=== PATIENT | male | born 1965 | race Two or more races ===

== ENCOUNTER 2020-08-02 18:40 | Inpatient (IN) | payer MEDICAID, OTHER ==
[~2020-08-02] VITALS: Ht 167.6 cm; Wt 83.0 kg
[2020-08-02] MEDS: SODIUM CHLORIDE 0.9% 1,000 ML IV SCH
[2020-08-02] MEDS ORDERED: cloNIDine HCL 0.1 MG TAB ONE (19:03)
[2020-08-02] MEDS ORDERED: cloNIDine HCL 0.1 MG TAB PO ONE ×2 (19:15→22:45)
[2020-08-02] MEDS ORDERED: levoFLOXacin 750MG 150 ML IV ONE (21:15)
[2020-08-02 22:32] LABS: Basophils # (auto) 0 10 ^3/uL (0-0.2); Eosinophils # (auto) 0 10 ^3/uL (0-0.8); Eosinophils % (auto) 0.2 % (0.0-7.0); Lymphocytes # (auto) 0.4 10 ^3/uL (0.4-5.4); Neutrophils # (auto) 6.3 10 ^3/uL (1.6-8.6); Red Cell Distribution Width 16.4 % (11.8-14.3); White Blood Cell 7.4 10^3/uL (4.4-10.8)
[2020-08-02 22:34] LABS: Basophils % (auto) 0.4 % (0.0-2.0); Hematocrit 26.3 % (41.0-53.0); Mean Corpuscular Hemoglobin 28.3 pg (28.0-32.0); Mean Corpuscular Hgb Conc. 30.6 g/dL (32.0-36.0); Mean Corpuscular Volume 92.6 fL (80.0-100.0); Monocytes # (auto) 0.7 10 ^3/uL (0-1.3); Monocytes % (auto) 9.1 % (0.0-12.0); Neutrophils % (auto) 85.3 % (37.0-80.0); Nucleated Red Blood Cells % 0.4 %; Platelet Count (auto) 321 10^3/uL (140-450); Red Blood Cells 2.84 10^6/uL (4.5-5.90)
[2020-08-02 22:50] LABS: INR 1.01 (0.9-1.15); Partial Thromboplastin Time 38.1 sec (23.0-31.2)
[2020-08-02 22:56] LABS: Albumin 2.8 g/dL (3.4-5.0); Calcium 8.4 mg/dL (8.5-10.1); Magnesium 2.3 mg/dL (1.6-2.6)
[2020-08-02 22:59] LABS: BUN/Creatinine Ratio 12.1
[2020-08-02] MEDS ORDERED: ACETAMINOPHEN 500 MG TAB PO PRN (23:00)
[2020-08-02] MEDS ORDERED: MORPHINE SULF INJ 2 MG/ML SYRINGE 1ML IV PRN (23:00)
[2020-08-02] MEDS ORDERED: ACETAMINOPHEN 325 MG TAB PO PRN (23:00)
[2020-08-02] MEDS ORDERED: DOCUSATE SOD 100 MG CAP PO PRN (23:00)
[2020-08-02] MEDS ORDERED: ONDANSETRON HCL 4 MG/2 ML VIAL IV PRN (23:00)
[2020-08-02 23:04] LABS: Bilirubin, Total 0.4 mg/dL (0.2-1.0); Total Protein 7.9 g/dL (6.4-8.2)
[2020-08-03 01:14] VITALS: BP 203/96
[2020-08-03] MEDS: ALBUTEROL SULF HFA 90MCG INH 200DOSE IN SCH ×3 (07:20→22:31)
[2020-08-03 09:37] LABS: Basophils # (auto) 0 10 ^3/uL (0-0.2); Basophils % (auto) 0.3 % (0.0-2.0); Eosinophils # (auto) 0 10 ^3/uL (0-0.8); Eosinophils % (auto) 0.2 % (0.0-7.0); Hemoglobin 7.5 g/dL (13.5-17.5); Mean Corpuscular Volume 91.4 fL (80.0-100.0); Red Cell Distribution Width 16.4 % (11.8-14.3); White Blood Cell 5.4 10^3/uL (4.4-10.8)
[2020-08-03] MEDS: ASCORBIC ACID 1,000 MG TAB PO SCH (09:37)
[2020-08-03] MEDS: DOXYCYCLINE 100 MG TAB/CAP PO SCH ×2 (09:37→23:01)
[2020-08-03] MEDS: ZINC SULFATE 220mg CAP or TAB PO SCH (09:37)
[2020-08-03] MEDS: SODIUM CHLORIDE 0.9% 1,000 ML IV SCH (09:37)
[2020-08-03 09:38] LABS: Hematocrit 23.8 % (41.0-53.0); Lymphocytes # (auto) 0.6 10 ^3/uL (0.4-5.4); Lymphocytes % (auto) 11.6 % (10.0-50.0); Mean Corpuscular Hemoglobin 28.8 pg (28.0-32.0); Mean Corpuscular Hgb Conc. 31.5 g/dL (32.0-36.0); Monocytes # (auto) 0.7 10 ^3/uL (0-1.3); Monocytes % (auto) 13.4 % (0.0-12.0); Neutrophils % (auto) 74.5 % (37.0-80.0); Platelet Count (auto) 291 10^3/uL (140-450)
[2020-08-03] MEDS: ENOXAPARIN SOD 30 MG/0.3 ML SYRINGE SC SCH (09:38)
[2020-08-03 09:53] LABS: Albumin 2.3 g/dL (3.4-5.0); Calcium 8.6 mg/dL (8.5-10.1); Magnesium 2.1 mg/dL (1.6-2.6); Potassium 4.8 mmol/L (3.5-5.1)
[2020-08-03 10:03] LABS: Bilirubin, Total 0.4 mg/dL (0.2-1.0)
[2020-08-03 14:39] LABS: Cholesterol 109 mg/dL (< 200)
[2020-08-03 14:41] LABS: HDL Cholesterol 37 mg/dL (40-59); LDL Cholesterol 50 mg/dL (< 100); Triglycerides 136 mg/dL (< 150)
[2020-08-03] MEDS ORDERED: amLODIPine BESYLATE 5 MG TAB PO ONE (14:45)
[2020-08-03 18:42] VITALS: BP 177/94
--- NOTE | 2020-08-03 18:46 | NUR ---
PATIENT ARRIVED TO THE FLOOR AND SHOWS NO SIGNS OF DISTRESS AT THIS TIME. BED IN LOWEST POSITION, SIDE RAILS UP X2, AND THE CALL LIGHT IS WITHIN REACH.
[2020-08-03] MEDS: cloNIDine HCL 0.1 MG TAB PO PRN (18:47)
--- NOTE | 2020-08-03 19:35 | NUR ---
Opening Shift Note Assumed care of patient, awake and alert. On O2 at 3 Lpm/NC. Updated on POC and to call for assist PRN, patient verbalized understanding. Bed in lowest position, call light within reach, will continue to monitor for changes Q1hr and PRN.
[2020-08-03 22:00] VITALS: BP 165/95
--- NOTE | 2020-08-03 23:00 | NUR ---
Called blood bank and followed up on convalescent plasma, per jaci Ahumada, blood product is not yet available
[2020-08-03] MEDS: METOPROLOL TARTRATE 25 MG TAB PO SCH (23:02)
[2020-08-04 01:05] VITALS: BP 158/95
[2020-08-04] MEDS: cloNIDine HCL 0.1 MG TAB PO PRN (06:15)
[2020-08-04] MEDS: ALBUTEROL SULF HFA 90MCG INH 200DOSE IN SCH ×3 (07:15→23:40)
[2020-08-04 08:48] VITALS: BP 146/70
[2020-08-04] MEDS: METOPROLOL TARTRATE 25 MG TAB PO SCH ×2 (09:02→20:41)
[2020-08-04] MEDS: ZINC SULFATE 220mg CAP or TAB PO SCH (09:02)
[2020-08-04] MEDS: DOXYCYCLINE 100 MG TAB/CAP PO SCH ×2 (09:03→20:41)
[2020-08-04] MEDS: ASCORBIC ACID 1,000 MG TAB PO SCH (09:03)
[2020-08-04] MEDS: amLODIPine BESYLATE 5 MG TAB PO SCH (09:03)
[2020-08-04] MEDS: ENOXAPARIN SOD 30 MG/0.3 ML SYRINGE SC SCH (09:03)
[2020-08-04] MEDS: FAMOTIDINE 20 MG TAB PO SCH (09:03)
[2020-08-04 11:25] LABS: Basophils # (auto) 0 10 ^3/uL (0-0.2); Eosinophils # (auto) 0 10 ^3/uL (0-0.8); Eosinophils % (auto) 0.1 % (0.0-7.0); Red Cell Distribution Width 16.1 % (11.8-14.3); White Blood Cell 5.4 10^3/uL (4.4-10.8)
[2020-08-04 11:28] LABS: Basophils % (auto) 0.3 % (0.0-2.0); Hematocrit 21.6 % (41.0-53.0); Hemoglobin 7.1 g/dL (13.5-17.5); Lymphocytes # (auto) 0.7 10 ^3/uL (0.4-5.4); Lymphocytes % (auto) 12.6 % (10.0-50.0); Mean Corpuscular Hemoglobin 29.2 pg (28.0-32.0); Mean Corpuscular Hgb Conc. 32.7 g/dL (32.0-36.0); Mean Corpuscular Volume 89.1 fL (80.0-100.0); Monocytes # (auto) 0.6 10 ^3/uL (0-1.3); Neutrophils # (auto) 4.1 10 ^3/uL (1.6-8.6); Platelet Count (auto) 269 10^3/uL (140-450); Red Blood Cells 2.42 10^6/uL (4.5-5.90)
--- NOTE | 2020-08-04 11:33 | NUR ---
PATIENT IS REFUSING THE POLK CATHETER. UA SENT TO LAB.
[2020-08-04 11:46] LABS: BUN/Creatinine Ratio 13.9; Calcium 8.2 mg/dL (8.5-10.1); Potassium 4.7 mmol/L (3.5-5.1)
[2020-08-04] MEDS ORDERED: ERGOCALCIFEROL 50,000 UNIT(1.25MG) CAP PO SCH (12:00)
[2020-08-04 12:19] LABS: Creatinine, Urine 51 mg/dL (30.0-125.0); Sodium Urine 67 mmol/L (40-220)
[2020-08-04 12:29] LABS: Urine Bacteria FEW /hpf (None Seen); Urine Blood 1+ /uL (Negative); Urine Mucus FEW (None Seen); Urine Specific Gravity 1.011 (1.001-1.035); Urine Sperm PRESENT /hpf (None Seen); Urine WBC 1 /hpf (0 - 3)
[2020-08-04] MEDS: HYDROcodone-ACET 5/325MG TAB PO PRN ×2 (12:41→18:10)
[2020-08-04 13:00] VITALS: BP 123/54
[2020-08-04 15:29] LABS: % Iron Saturation 4.3 % (20-55)
[2020-08-04] MEDS ORDERED: SODIUM FERR GLUC 62.5MG/5ML 125 MG in SODIUM CHL 0.9% 100 ML IV ONE (16:30)
[2020-08-04 17:00] VITALS: BP 158/82
--- NOTE | 2020-08-04 19:25 | NUR ---
Opening note Assumed care of patient, patient is alert and orientated x4. No sob or distress noted at this time. Bed is on lowest position, side rails up x2. Patient sits up, turns and ambulates with stand by assist. Patient is on room air saturation is 99%. POC reviewed. Patient Verbalized understanding. Patient is still refusing his vera order at this time. MD aware. Will continue to monitor q1hr and PRN.
[2020-08-04 22:00] VITALS: BP 129/68
[2020-08-05] VITALS (7 sets, daily range): BP systolic 152–184; BP diastolic 70–94
[2020-08-05] MEDS: HYDROcodone-ACET 5/325MG TAB PO PRN ×3 (02:54→22:59)
[2020-08-05] MEDS: cloNIDine HCL 0.1 MG TAB PO PRN ×2 (06:19→18:25)
--- NOTE | 2020-08-05 07:00 | NUR ---
OPENING SHIFT NOTE RECEIVED REPORT ON THE PATIENT. AWAKE LYING IN BED. PATIENT SHOWS NO SIGNS OF DISTRESS AT THIS TIME. DISCUSSED THE PLAN OF CARE WITH THE PATIENT. BED IN LOWEST POSITION, SIDE RAILS UP X2, AND THE CALL LIGHT IS WITHIN REACH.
[2020-08-05] MEDS: ALBUTEROL SULF HFA 90MCG INH 200DOSE IN SCH ×3 (07:20→22:37)
--- NOTE | 2020-08-05 07:33 | NUR ---
Closing note Endorsed care to day shift RN. no sob or distress noted.
[2020-08-05] MEDS: METOPROLOL TARTRATE 25 MG TAB PO SCH ×2 (08:59→21:19)
[2020-08-05] MEDS: ZINC SULFATE 220mg CAP or TAB PO SCH (08:59)
[2020-08-05] MEDS: amLODIPine BESYLATE 5 MG TAB PO SCH (09:00)
[2020-08-05] MEDS: ENOXAPARIN SOD 30 MG/0.3 ML SYRINGE SC SCH (09:00)
[2020-08-05] MEDS: ASCORBIC ACID 1,000 MG TAB PO SCH (09:00)
[2020-08-05] MEDS: DOXYCYCLINE 100 MG TAB/CAP PO SCH ×2 (09:00→21:19)
[2020-08-05] MEDS: FAMOTIDINE 20 MG TAB PO SCH (09:00)
--- NOTE | 2020-08-05 09:10 | NUR ---
CALLED BLOOD BANK REGARDING THE STATUS OF THE CONVALESCENT PLASMA. TYPE B WAS NOT AVAILABLE YET.
[2020-08-05 11:22] LABS: Hematocrit 20.3 % (41.0-53.0)
[2020-08-05 11:31] LABS: Hemoglobin 6.4 g/dL (13.5-17.5)
[2020-08-05 11:35] LABS: Calcium 8.1 mg/dL (8.5-10.1); Potassium 4.6 mmol/L (3.5-5.1)
--- NOTE | 2020-08-05 11:44 | NUR ---
PAGED DR SANDERSON AND INFORMED HER OF THE HGB, BUN, AND CREATINE.
[2020-08-05] MEDS ORDERED: SODIUM FERR GLUC 62.5MG/5ML 125 MG in SODIUM CHL 0.9% 100 ML IV SCH (12:00)
[2020-08-05] MEDS ORDERED: FUROSEMIDE 100 MG/10ML VIAL IV ONE (12:15)
[2020-08-05] MEDS ORDERED: DEXTROSE (50%) 50ML SYRG IV PRN (15:15)
[2020-08-05] MEDS ORDERED: ACETAMINOPHEN 325 MG TAB PO PRN (15:30)
[2020-08-05] MEDS: ACCU-CHEK COMFORT CURVE STRIP VI SCH ×2 (18:25→21:19)
[2020-08-05] MEDS: InsuLIN REG 1unit/0.01ml Soln (100units/ml) SC SCH (18:39)
--- NOTE | 2020-08-05 19:41 | NUR ---
IV removal IV DC'd with clean sterile technique, catheter fully intact. Pressure dressing applied to site. Patient tolerated well. NOTE: []
--- NOTE | 2020-08-05 19:41 | NUR ---
IV insertion IV access obtained, via clean sterile technique by inserting 20 gauge catheter at the left AC after 1 attempt(s). IV secured properly. No trauma to site. Patient tolerated well. NOTE: []
--- NOTE | 2020-08-05 20:25 | NUR ---
open note assumed care of pt, pt awake and alert upon entry. pt on room air with no respiratory distress observed or verbalized. pt denies any pain at this time. pt oriented to this nurse and updated on plan of care. pt bed locked, low and 2x rails up. call light in reach. this nurse to touch base with pt q1hr and prn. pt encouraged to call as needed.
[2020-08-05] MEDS ORDERED: InsuLIN REG 1unit/0.01ml Soln (100units/ml) SC SCH (22:00)
[2020-08-05] MEDS ORDERED: ATORVASTATIN 20 MG TAB PO SCH (22:00)
[2020-08-06 05:08] VITALS: BP 169/82
[2020-08-06] MEDS: cloNIDine HCL 0.1 MG TAB PO PRN (05:11)
[2020-08-06] MEDS: HYDROcodone-ACET 5/325MG TAB PO PRN (05:11)
[2020-08-06 06:18] LABS: Basophils # (auto) 0 10 ^3/uL (0-0.2); Basophils % (auto) 0.3 % (0.0-2.0); Eosinophils # (auto) 0 10 ^3/uL (0-0.8); Eosinophils % (auto) 0.1 % (0.0-7.0); Hematocrit 25.1 % (41.0-53.0); Lymphocytes # (auto) 0.8 10 ^3/uL (0.4-5.4); Lymphocytes % (auto) 15.2 % (10.0-50.0); Mean Corpuscular Hemoglobin 28.3 pg (28.0-32.0); Mean Corpuscular Hgb Conc. 32.1 g/dL (32.0-36.0); Monocytes # (auto) 0.6 10 ^3/uL (0-1.3); Neutrophils # (auto) 3.8 10 ^3/uL (1.6-8.6); Neutrophils % (auto) 72.4 % (37.0-80.0); Nucleated Red Blood Cells % 1.3 %; Platelet Count (auto) 277 10^3/uL (140-450); Red Blood Cells 2.85 10^6/uL (4.5-5.90); Red Cell Distribution Width 16.5 % (11.8-14.3); White Blood Cell 5.2 10^3/uL (4.4-10.8)
[2020-08-06] MEDS: ALBUTEROL SULF HFA 90MCG INH 200DOSE IN SCH (06:29)
[2020-08-06 06:32] LABS: Potassium 4.1 mmol/L (3.5-5.1)
[2020-08-06 06:44] LABS: Albumin 2.1 g/dL (3.4-5.0); BUN/Creatinine Ratio 14.4; Bilirubin, Total 0.4 mg/dL (0.2-1.0); Calcium 8.4 mg/dL (8.5-10.1); Total Protein 6.5 g/dL (6.4-8.2)
[2020-08-06] MEDS: InsuLIN REG 1unit/0.01ml Soln (100units/ml) SC SCH (06:55)
[2020-08-06] MEDS: ACCU-CHEK COMFORT CURVE STRIP VI SCH (06:55)
[2020-08-06 09:00] VITALS: BP 129/69
[2020-08-06] MEDS: ZINC SULFATE 220mg CAP or TAB PO SCH (09:16)
[2020-08-06] MEDS: DOXYCYCLINE 100 MG TAB/CAP PO SCH (09:17)
[2020-08-06] MEDS: FAMOTIDINE 20 MG TAB PO SCH (09:17)
[2020-08-06] MEDS: METOPROLOL TARTRATE 25 MG TAB PO SCH (09:17)
[2020-08-06] MEDS: ASCORBIC ACID 1,000 MG TAB PO SCH (09:17)
[2020-08-06] MEDS ORDERED: ALBUTEROL SULF HFA 90MCG INH 200DOSE IN PRN (09:45)
[2020-08-06] MEDS ORDERED: amLODIPine BESYLATE 5 MG TAB PO SCH (10:00)
[2020-08-06] MEDS ORDERED: ENOXAPARIN SOD 30 MG/0.3 ML SYRINGE SC SCH (10:00)
[2020-08-06] MEDS ORDERED: ASPirin 81 mg TAB PO SCH (10:00)
[2020-08-06] MEDS ORDERED: BUMETANIDE 2.5mg/10ml (0.25 mg/ml) INJ IV ONE (10:30)
[2020-08-06] MEDS ORDERED: FER325T PO (10:31)
[2020-08-06] MEDS ORDERED: FURO80TA3 PO ×2 (10:31→10:33)
[2020-08-06] MEDS ORDERED: AMLO10TA13 PO (10:31)
[2020-08-06] MEDS ORDERED: ALBUAER3 IN (10:31)
[2020-08-06] MEDS ORDERED: ASCO500T11 PO (10:31)
[2020-08-06] MEDS ORDERED: ERGO1CAP23 PO (10:31)
[2020-08-06] MEDS ORDERED: MET25T PO (10:31)
[2020-08-06] MEDS ORDERED: ASPI81CH43 PO (10:31)
[2020-08-06] MEDS ORDERED: ZINC220T6 PO (10:31)
[2020-08-06] MEDS ORDERED: ATOR10TA52 PO (10:35)
[2020-08-06 11:34] VITALS: BP 129/69
[2020-08-06] MEDS ORDERED: SODIUM BICARBONATE 50ML VIAL 100 ML in SOD CHL 0.45% 1,000 ML IV SCH (12:00)
[2020-08-07 12:57] LABS: Hepatitis B Surface Antigen Negative (Negative); Hepatitis C Antibody Negative (Negative)
== END 2020-08-06 14:43 | disposition home or self-care (01) | DRG 137 ==
LOC: ER 18:42 → TELE 18:43 → TELE-WESTW 08-03 18:35
PROVIDERS: ADMIT Hospitalist; ATTEND Internal Medicine
PROC: 30233N1 Transfusion of Nonautologous Red Blood Cells into Peripheral Vein, Percutaneous Approach (ICD-10-PCS; principal; 2020-08-05)
DX: U07.1 COVID-19 (principal); J12.89 Other viral pneumonia; I21.A1 Myocardial infarction type 2; I16.0 Hypertensive urgency; N17.0 Acute kidney failure with tubular necrosis; E87.2 Acidosis; E11.65 Type 2 diabetes mellitus with hyperglycemia; I13.2 Hypertensive heart and chronic kidney disease with heart failure and with stage 5 chronic kidney disease, or end stage renal disease; D63.1 Anemia in chronic kidney disease; I50.43 Acute on chronic combined systolic (congestive) and diastolic (congestive) heart failure; E55.9 Vitamin D deficiency, unspecified; D50.9 Iron deficiency anemia, unspecified; E78.5 Hyperlipidemia, unspecified; I25.10 Atherosclerotic heart disease of native coronary artery without angina pectoris; I42.9 Cardiomyopathy, unspecified; I70.0 Atherosclerosis of aorta; Z78.9 Other specified health status; Z79.899 Other long term (current) drug therapy; Z91.19 Patient's noncompliance with other medical treatment and regimen; N18.5 Chronic kidney disease, stage 5; E11.22 Type 2 diabetes mellitus with diabetic chronic kidney disease; I27.20 Pulmonary hypertension, unspecified; J96.00 Acute respiratory failure, unspecified whether with hypoxia or hypercapnia
CPT/HCPCS: 36415; 36600; 71045; 76775; 80048; 80053; 80061; 81001; 82306; 82570; 82728; 82805; 82962; 83036; 83540; 83550; 83615; 83735; 83880; 83970; 84100; 84156; 84300; 84443; 84484; 85014; 85018; 85025; 85379; 85610; 85730; 86141; 86803; 86850; 86900; 86901; 86920; 87340; 87426; 93306; 94640; 96361; 96365; 96372; G0378; J1815; J1956